=== PATIENT | female | born 1955 | race Hispanic/Latino ===

== ENCOUNTER 2021-01-19 02:43 | Emergency (ER) | payer MEDICARE, OTHER ==
[2021-01-19] MEDS ORDERED: Ondansetron ODT 4 MG TAB ONE (03:12)
[2021-01-19] MEDS ORDERED: Acetaminophen 500 MG TAB ONE (03:12)
== END 2021-01-19 03:37 | disposition home or self-care (01) ==
LOC: ERS 02:43
DX: G44.209 Tension-type headache, unspecified, not intractable (principal); J30.9 Allergic rhinitis, unspecified; M06.9 Rheumatoid arthritis, unspecified
CPT/HCPCS: 99283; Q0162

== ENCOUNTER 2021-09-08 15:55 | Emergency (ER) | payer MEDICARE ==
[2021-09-08] MEDS ORDERED: Acetaminophen 500 MG TAB ONE (18:23)
== END 2021-09-08 19:00 | disposition home or self-care (01) ==
LOC: ERS 15:55
DX: H60.92 Unspecified otitis externa, left ear (principal)
CPT/HCPCS: 99282